=== PATIENT | female | born 1980 | race Caucasian/White ===

== ENCOUNTER 2018-07-14 19:44 | Emergency (ER) | payer MEDICAID ==
[~2018-07-14] VITALS: Ht 165.1 cm; Wt 113.6 kg
[2018-07-14 19:50] VITALS: Ht 165.1 cm; Wt 113.6 kg
[2018-07-14] MEDS ORDERED: OMEPRAZOLE20 M1 (19:52)
[2018-07-14 20:28] LABS: BASOPHILS 0.4 % (0-2); EOSINOPHILS 3.6 % (0-7); HEMATOCRIT 38.8 % (36.0-48.0); HEMOGLOBIN 12.8 g/dL (12-16); IMMATURE GRANULOCYTES 0.1 % (0-5); LYMPHOCYTES 25.7 % (15-50); MEAN PLATELET VOLUME 9.2 fL (7.4-10.4); MONOCYTES 5.8 % (2-11); NEUTROPHILS 64.4 % (40-80); PLATELET COUNT 327 10x3/uL (130-400); RBC 4.41 10x6/uL (4.00-5.40); RDW 14.3 % (11.5-14.5); WBC 9.5 10x3/uL (4.8-10.8)
[2018-07-14 20:42] LABS: APPEARANCE CLEAR (CLEAR); COLOR YELLOW (YELLOW); HCG URINE NEGATIVE (NEGATIVE)
[2018-07-14 20:43] LABS: BILIRUBIN NEGATIVE (NEGATIVE); GLUCOSE NEGATIVE (NEGATIVE); KETONE NEGATIVE (NEGATIVE); NITRITE NEGATIVE (NEGATIVE); PROTEIN NEGATIVE (NEGATIVE); UROBILINOGEN NORMAL (NORMAL)
[2018-07-14 20:45] LABS: ALBUMIN 3.3 g/dL (3.4-5.0); ALKALINE PHOSPHATASE 42 U/L (46-116); ALT (SGPT) 22 U/L (10-68); BILIRUBIN - TOTAL 0.16 mg/dL (0.2-1.3); CALC OSMOLALITY 282 mosm/kg (275-300); CALCIUM 8.4 mg/dL (8.5-10.1); CARBON DIOXIDE 25.5 mmol/L (21.0-32.0); CHLORIDE - SERUM 107 mmol/L (98-107); CREATININE - SERUM 0.6 mg/dL (0.6-1.3); GLUCOSE 110 mg/dL (74-106); PROTEIN - SERUM 7.4 g/dL (6.4-8.2); SODIUM 141 mmol/L (136-145); UREA NITROGEN 14 mg/dL (7-18); eGFR NON AFRICAN AMERICAN > 90 mL/min (90-120)
[2018-07-14 20:48] LABS: AMYLASE - SERUM 34 U/L (25-115); LIPASE 186 U/L (73-393); TROPONIN-I < 0.017 ng/mL (0.000-0.060)
[2018-07-14] MEDS ORDERED: FLAGYL500 MG PO (21:24)
[2018-07-14 21:41] VITALS: BP 132/77
== END 2018-07-14 21:43 | disposition home or self-care (01) ==
LOC: D.ER 19:44
PROVIDERS: Family Medicine
DX: N76.0 Acute vaginitis (principal); B96.89 Other specified bacterial agents as the cause of diseases classified elsewhere; R10.30 Lower abdominal pain, unspecified

== ENCOUNTER 2020-07-09 13:24 | Emergency (ER) | payer MEDICAID ==
[~2020-07-09] VITALS: Ht 165.1 cm; Wt 125.0 kg
[~2020-07-09 13:24] MED LIST: FLAGYL500 MG PO; OMEPRAZOLE20 M1
[2020-07-09 13:35] VITALS: Ht 165.1 cm; Wt 125.0 kg
[2020-07-09] MEDS ORDERED: XANAX1 MG (13:38)
[2020-07-09] MEDS ORDERED: OMEPRAZOLE20 M1 (13:38)
[2020-07-09] MEDS ORDERED: BUPROPION HCL100 MG (13:39)
[2020-07-09] MEDS ORDERED: DICLOFENAC SODI50 MG PO (15:46)
[2020-07-09 16:08] VITALS: BP 115/72
== END 2020-07-09 16:08 | disposition home or self-care (01) ==
LOC: D.ER 13:24
DX: M17.11 Unilateral primary osteoarthritis, right knee (principal); M76.51 Patellar tendinitis, right knee; K21.9 Gastro-esophageal reflux disease without esophagitis